=== PATIENT | female | born 1995 | race Caucasian/White ===

== ENCOUNTER 2018-09-16 00:17 | Emergency (ER) | payer BC ==
[~2018-09-16] VITALS: Ht 157.5 cm; Wt 57.6 kg
[2018-09-16 00:28] VITALS: BP_SYST 150
--- NOTE | 2018-09-16 00:31 | NUR ---
Pt placed to ER waiting room in stable condition.
--- NOTE | 2018-09-16 02:48 | NUR ---
Patient to ER bed FARRELL to gown for evaluation. Side rails up.
--- NOTE | 2018-09-16 03:01 | NUR ---
KELLY Valenzuela at bedside examining patient.
[2018-09-16 03:15] VITALS: BP_SYST 150
[2018-09-16] MEDS ORDERED: CEPHALEXIN 500 MG CAPSULE PO ONE (03:15)
--- NOTE | 2018-09-16 03:15 | NUR ---
Patient given written and verbal discharge instructions and verbalizes understanding. ER MD discussed with patient the results and treatment provided. Patient in stable condition. ID arm band removed. Rx of KEFLEX given. Patient educated on pain management and to follow up with PMD. Pain Scale 4/10. Opportunity for questions provided and answered. Medication side effect fact sheet provided.
== END 2018-09-16 03:15 | disposition home or self-care (01) ==
LOC: SED 00:17
DX: L01.00 Impetigo, unspecified (principal)
CPT/HCPCS: 99283

== ENCOUNTER 2020-01-29 23:54 | Emergency (ER) | payer BC, MEDICAID ==
[~2020-01-29] VITALS: Ht 157.5 cm; Wt 64.0 kg
[2020-01-30 00:03] VITALS: BP_SYST 128
[2020-01-30 00:20] LABS: BILIRUBIN,URINE NEGATIVE (NEGATIVE); BLOOD, URINE 3+ (NEGATIVE); CLARITY/URINE CLEAR (CLEAR); COLOR,URINE YELLOW (YELLOW); GLUCOSE,URINE NEGATIVE (NEGATIVE); KETONES,URINE NEGATIVE (NEGATIVE); LEUKOCYTE ESTERASE ,URINE 1+ (NEGATIVE); NITRITE, URINE NEGATIVE (NEGATIVE); PROTEIN URINE NEGATIVE (NEGATIVE); UROBILINOGEN,URINE 0.2 (0.2-1.0)
[2020-01-30 00:29] LABS: RBC,URINE 20-50 /HPF (0-3)
[2020-01-30 00:30] LABS: BACTERIA,URINE FEW /HPF (None Seen)
[2020-01-30 00:50] LABS: BASOPHILS # (AUTO) 0.3 K/uL (0.0-0.2); BASOPHILS % (AUTO) 3.5 % (0.0-2.0); EOSINOPHILS # (AUTO) 0.2 K/uL (0.0-0.4); EOSINOPHILS % (AUTO) 2.2 % (0.0-4.0); HEMATOCRIT 37.2 % (36-48); HEMOGLOBIN 12.7 g/dL (12.0-16.0); LYMPHOCYTES # (AUTO) 1.6 K/uL (1.0-5.5); LYMPHOCYTES % (AUTO) 16.7 % (20.5-51.5); MEAN CORPUSCULAR HEMOGLOBIN 32 pg (27-31); MEAN CORPUSCULAR HGB CONC 34 % (32-36); MEAN CORPUSCULAR VOLUME 93 fL (79.0-98.0); MONOCYTES # (AUTO) 0.5 K/uL (0.0-1.0); MONOCYTES % (AUTO) 5.8 % (1.7-9.3); NEUTROPHILS # (AUTO) 6.7 K/uL (1.8-7.7); NEUTROPHILS % (AUTO) 71.8 % (40.0-70.0); PLATELET COUNT (AUTO) 270 K/uL (130-430); RED BLOOD CELL COUNT(AUTO) 3.99 MIL/uL (4.2-6.2); RED CELL DISTRIBUTION WIDTH 13.1 % (9.0-15.0); WHITE BLOOD COUNT (AUTO) 9.4 K/uL (4.8-10.8)
[2020-01-30 01:21] LABS: CALCIUM 9.2 mg/dL (8.4-11.0); CREATININE 0.57 mg/dL (0.55-1.30); POTASSIUM 3.7 mmol/L (3.5-5.1)
[2020-01-30 01:47] LABS: ALBUMIN 3.1 g/dL (3.4-4.8); TOTAL BILIRUBIN 0.2 mg/dL (0.0-1.0)
[2020-01-30 02:47] VITALS: BP_SYST 128
== END 2020-01-30 02:46 | disposition home or self-care (01) ==
LOC: SED 23:54
DX: O20.9 Hemorrhage in early pregnancy, unspecified (principal); O23.42 Unspecified infection of urinary tract in pregnancy, second trimester; Z3A.16 16 weeks gestation of pregnancy
CPT/HCPCS: 36415; 76815; 80053; 81000-TC; 84702-TC; 85025; 86900; 86901; 87086; 99284